=== PATIENT | female | born 1940 | race Two or more races ===

== ENCOUNTER 2018-11-01 08:37 | Outpatient (CLI) | payer OTHER | END 2018-11-01 08:38 | disposition home or self-care (01) | LOC: SONOGRAMA 08:37 | DX: E04.2 Nontoxic multinodular goiter (principal) ==

== ENCOUNTER 2018-11-01 09:57 | Outpatient (CLI) | payer OTHER | END 2018-11-01 10:01 | disposition home or self-care (01) | LOC: RAD 09:57 | DX: M25.561 Pain in right knee (principal); M25.562 Pain in left knee ==